=== PATIENT | female | born 1975 | race Caucasian/White ===

== ENCOUNTER 2017-08-17 01:01 | Emergency (ER) | payer BC ==
[2017-08-17 01:15] VITALS: BP 120/80
[2017-08-17] MEDS ORDERED: Acetaminophen 500 MG Tab PO ONE (01:20)
--- NOTE | 2017-08-17 01:20 | EDM.PDOC ---
ED HPI GENERAL MEDICAL PROBLEM - General Chief Complaint: Headache Stated Complaint: HEADACHE Time Seen by Provider: 08/17/17 01:18 - History of Present Illness INITIAL COMMENTS - FREE TEXT/NARRATIVE: HISTORY AND PHYSICAL: History of present illness: Patient 41-year-old female presents with concern of headache she also states she 's had some paresthesia of her left shoulder and arm and concern about recently starting estradiol for her menopause she's been on it 2 days. She acknowledges anxiety is been no other neurological signs or symptoms no chest pain shortness breath or other concern Review of systems: As per history of present illness and below otherwise all systems reviewed and negative. Past medical history: As per history of present illness and as reviewed below otherwise noncontributory. Surgical history: As per history of present illness and as reviewed below otherwise noncontributory. Social history: No reported history of drug or alcohol abuse. Family history: As per history of present illness and as reviewed below otherwise noncontributory. Physical exam: HEENT: Atraumatic, normocephalic, pupils reactive, negative for conjunctival pallor or scleral icterus, mucous membranes moist, throat clear, neck supple, nontender, trachea midline. Lungs: Clear to auscultation, breath sounds equal bilaterally, chest nontender. Heart: S1S2, regular, negative for clicks, rubs, or JVD. Abdomen: Soft, nondistended, nontender. Negative for masses or hepatosplenomegaly. Negative for costovertebral tenderness. Pelvis: Stable nontender. Genitourinary: Deferred. Rectal: Deferred. Extremities: Atraumatic, negative for cords or calf pain. Neurovascular unremarkable. Neuro: Awake, alert, oriented. Cranial nerves II through XII unremarkable. Cerebellum unremarkable. Motor and sensory unremarkable throughout. Exam nonfocal. Diagnostics: CT brain Therapeutics: None Impression: #1 cephalgia Definitive disposition and diagnosis as appropriate pending reevaluation and review of above. head Pain Score (Numeric/FACES): 5 - Related Data Allergies Allergy/AdvReac Type Severity Reaction Status Date / Time No Known Allergies Allergy Verified 08/17/17 01:05 Home Meds: Home Meds Estradiol 1 mg PO DAILY 08/17/17 [History] Terbinafine [LamISIL] 250 mg PO DAILY 08/17/17 [History] Social & Family History - Tobacco Use Smoking Status *Q: Never Smoker - Caffeine Use Caffeine Use: Reports: Tea - Recreational Drug Use Recreational Drug Use: No ED ROS GENERAL - Review of Systems Review Of Systems: ROS reveals no pertinent complaints other than HPI. ED EXAM, GENERAL - Physical Exam Exam: See Below (See dictation) Course - Vital Signs Last Recorded V/S: Last Vital Signs Temp 36.2 C 08/17/17 01:01 Pulse 66 08/17/17 01:01 Resp 18 08/17/17 01:01 BP 120/80 08/17/17 01:01 Pulse Ox 98 08/17/17 01:01 Departure - Departure Time of Disposition: Disposition: Home, Self-Care 01 Condition: Good Clinical Impression: Cephalgia - Discharge Information Referrals: PCP,None [Primary Care Provider] - Additional Instructions: The following information is given to patients seen in the emergency department who are being discharged to home. This information is to outline your options for follow-up care. We provide all patients seen in our emergency department with a follow-up referral. The need for follow-up, as well as the timing and circumstances, are variable depending upon the specifics of your emergency department visit. If you don't have a primary care physician on staff, we will provide you with a referral. We always advise you to contact your personal physician following an emergency department visit to inform them of the circumstance of the visit and for follow-up with them and/or the need for any referrals to a consulting specialist. The emergency department will also refer you to a specialist when appropriate. This referral assures that you have the opportunity for followup care with a specialist. All of these measure are taken in an effort to provide you with optimal care, which includes your followup. Under all circumstances we always encourage you to contact your private physician who remains a resource for coordinating your care. When calling for followup care, please make the office aware that this follow-up is from your recent emergency room visit. If for any reason you are refused follow-up, please contact the [facility] emergency department at and asked to speak to the emergency department charge nurse. Follow-up primary medical doctor 1-2 days. Estradiol as discussed review with prescribing physician alternative therapy and risk-benefit
--- NOTE | 2017-08-18 20:01 | CT ---
EXAM DATE: 08/17/17 PATIENT'S AGE: 41 Patient: DONNA MENENDEZ Facility: [place], [place] Site . Site : [id number] Study: CT Head [id number] 1:48:02 AM Ordering Physician: Nkechi Warren Final Report: INDICATION: Headache TECHNIQUE: CT Head without i.v. contrast. CONTRAST: None COMPARISON: None FINDINGS: CSF spaces: The ventricles are normal for age. Brain: No evidence of mass, acute infarction or hemorrhage is seen. No mass- effect or midline shift is seen. The brain parenchyma is otherwise normal in appearance with preservation of the mixon-white matter junction. Calvarium: The visualized paranasal sinuses are well aerated. The mastoid air cells are clear. The visualized orbits are grossly unremarkable. The calvarium is unremarkable in appearance with no fractures identified. IMPRESSION: 1. No evidence of acute infarction, intracranial hemorrhage, or mass-effect seen. Dictated by: Lloyd Gutierrez MD @ 08/17/2017 01:51:19 (Electronic Signature) Report Signed by Proxy. [facility] HOSPITALMadelyn
== END 2017-08-17 02:00 | disposition home or self-care (01) ==
LOC: MW.ED 01:01
DX: R51 Headache (principal); Z79.899 Other long term (current) drug therapy
CPT/HCPCS: 70450; 99284; A9270; 99283